=== PATIENT | female | born 1980 | race Caucasian/White ===

== ENCOUNTER 2021-06-20 21:38 | Emergency (ER) | payer SELFPAY ==
[~2021-06-20 21:38] MED LIST: BACTRIM DS1 TAB OR; BACTRIM DS1 TAB PO; BENTYL10 MG PO; CARAFATE OR; CELEXA20 MG PO; CIPRO500 MG OR; CIPRO500 MG PO; CIPROFLOXACN500 MG PO; CLEOCIN150 MG OR; COMBIVIR 1501 COMBO PO; DEPAKOTE ER250 MG OR; KEFLEX500 MG PO; KLONOPIN0.5 MG PO; LEXAPRO5 MG PO; LORTAB 5 OR; LORTAB 7.5 PO; LORTAB5 PO; MACRODANTIN100 MG PO; ONDANSETRON4 MG OR; PAXIL10 MG OR; PEPCID20 MG PO; PERCOCET 5/325M1 TAB OR; PRILOSEC20 MG PO; PRILOSEC20 MG/CAP PO; PROMETHAZINE25 MG; PROMETHAZINE25 MG OR; PROTONIX40 MG OR; PROZAC20 MG OR; PYRIDIUM OR; SEROQUEL100 MG OR; TRAZODONE100 MG OR; TRAZODONE50 MG OR; VALIUM10 MG OR; VALIUM2 MG PO; ZOFRAN ODT4 MG OR; ZOFRAN ODT4 MG PO; ZOFRAN4 MG OR
== END 2021-06-20 23:02 | disposition left against medical advice (07) | DRG 951 ==
LOC: ED 21:38 → LWOBS 23:02
DX: Z53.21 Procedure and treatment not carried out due to patient leaving prior to being seen by health care provider (principal)

== ENCOUNTER 2021-06-22 08:56 | Observation (INO) | payer SELFPAY ==
[~2021-06-22] VITALS: Ht 165.1 cm; Wt 60.0 kg
[2021-06-22 10:38] LABS: HEMATOCRIT 36.6 % (37.0-47.0); HEMOGLOBIN 12.3 g/dl (12.0-16.0); IMMATURE GRANULOCYTES 0.7 % (0.0-5.0); MEAN CORPUSCULAR HGB 27.9 pG CALC (26.0-32.0); MEAN CORPUSCULAR HGB CONC 33.6 g/dL CAL (32.0-36.0); NEUT# 14.89 thou/uL (2.00-7.15); RED BLOOD COUNT 4.41 mill/uL (4.20-5.60)
[2021-06-22 10:42] LABS: ALKALINE PHOSPHATASE 143 u/l (38-126); ANION GAP 13 (6-22 (CALC)); BUN 12 mg/dL (7-17); BUN/CREATININE RATIO 21 (12-20 (CALC)); CARBON DIOXIDE 23 mmol/l (22-30); CHLORIDE 101 mmol/l (95-108); CREATININE 0.6 mg/dL (0.5-1.0); GFR > 60 ML/MIN (>=60 (CALC)); GFR FOR AFR.AMER. > 60 ML/MIN (>=60 (CALC)); LIPASE 22 u/l (23-300); POTASSIUM 3.8 mmol/l (3.5-5.1); SGOT/AST 26 u/l (14-36); SODIUM 133 mmol/l (137-146); TOTAL PROTEIN 6.4 g/dL (6.3-8.2)
[2021-06-22 10:43] LABS: ALBUMIN 3.3 g/dL (3.2-5.0); BILIRUBIN, TOTAL 0.9 mg/dL (0.0-1.4)
[2021-06-22 18:27] LABS: URINE BLOOD DIPSTICK NEGATIVE (NEGATIVE); URINE COLOR YELLOW; URINE GLUCOSE - DIPSTICK NEGATIVE (NEGATIVE); URINE KETONE 15 mg/dL (NEGATIVE); URINE LEUK ESTERASE NEGATIVE (NEGATIVE); URINE PH 6.5 (4.5-8.0); URINE PROTEIN - DIPSTICK 30 mg/dL (NEG-TRACE); URINE SPECIFIC GRAVITY >=1.030
[2021-06-22 18:29] LABS: URINE NITRITE - DIPSTICK NEGATIVE (Negative)
[2021-06-22 18:30] LABS: URINE BILIRUBIN - DIPSTICK NEGATIVE (NEGATIVE)
[2021-06-22 18:38] LABS: URINE AMORPH SEDIMENT FEW hpf (NONE-FEW); URINE SQUAMOUS EPITHELIAL CELL FEW EPI/hpf (0-FEW)
[2021-06-23 04:47] VITALS: BP 103/70
[2021-06-23 04:56] LABS: HEMATOCRIT 34.1 % (37.0-47.0); HEMOGLOBIN 11.1 g/dl (12.0-16.0); MEAN CELL VOLUME 84.8 fL CALC (80.0-100.0); MEAN CORPUSCULAR HGB 27.6 pG CALC (26.0-32.0); MEAN CORPUSCULAR HGB CONC 32.6 g/dL CAL (32.0-36.0); RED BLOOD COUNT 4.02 mill/uL (4.20-5.60); RED CELL DISTRI WIDTH 13.4 % (11.5-15.5)
[2021-06-23 05:09] LABS: BUN 7 mg/dL (7-17); BUN/CREATININE RATIO 12 (12-20 (CALC)); CHLORIDE 103 mmol/l (95-108); CREATININE 0.6 mg/dL (0.5-1.0); GFR > 60 ML/MIN (>=60 (CALC)); GFR FOR AFR.AMER. > 60 ML/MIN (>=60 (CALC)); MAGNESIUM 1.9 mg/dL (1.6-2.3); SODIUM 136 mmol/l (137-146)
[2021-06-23 05:11] LABS: ANION GAP 8 (6-22 (CALC)); CARBON DIOXIDE 28 mmol/l (22-30)
[2021-06-23 10:44] VITALS: BP 120/78
[2021-06-23] MEDS ORDERED: Levaquin PO (11:02)
== END 2021-06-23 11:06 | disposition left against medical advice (07) | DRG 195 ==
LOC: ED 08:56 → ED-I 12:39 → ED 13:01 → ED-I 13:02 → MSH 16:16
PROVIDERS: Family Medicine; ADMIT Hospitalist; ATTEND Hospitalist
PROC: 02HV33Z Insertion of Infusion Device into Superior Vena Cava, Percutaneous Approach (ICD-10-PCS; principal; 2021-06-22)
DX: J18.9 Pneumonia, unspecified organism (principal); F19.10 Other psychoactive substance abuse, uncomplicated; Z59.0 Homelessness; Z20.822 Contact with and (suspected) exposure to COVID-19; Z88.8 Allergy status to other drugs, medicaments and biological substances
CPT/HCPCS: G0378; J1650